=== PATIENT | male | born 1955 | race Caucasian/White ===

== ENCOUNTER 2016-12-01 13:36 | Emergency (ER) | payer OTHER ==
[~2016-12-01] VITALS: Ht 170.2 cm; Wt 104.5 kg
[2016-12-01 13:43] VITALS: BP 146/76; PULSE 70; RESP 16; O2SAT 98
[2016-12-01] MEDS ORDERED: FLC50T PO (13:46)
[2016-12-01] MEDS ORDERED: ESCI20TA PO (13:46)
--- NOTE | 2016-12-01 14:03 | ED.REPORT ---
HPI-General Illness Date of Service Dec 01, 2016 ED Provider: Dr. Baptiste Pt is a 61 y/o male anticoagulated on (possibly Eliquis), w/ a hx of a-fib s/p ablation, NIDDM, presenting to the ED c/o intermittent irregular heart palpitations onset 2 hours ago. He c/o associated lightheadedness, chest discomfort which is mostly pleuritic and directly associated with the irregular heart beats. Pt denies SOB, fever, chills. He recently had a nuclear stress test which was normal and an echocardiogram which was normal with an EF of 60%. He was placed on a Holter monitor recently at which time it was discovered that he had been experiencing intermittent episodes of a-fib and was placed on a " new anticoagulant (possibly Eliquis)" and Flecainide. Nursing Notes Stated Complaint: ABNORMAL HEART RHYTHM,LIGHT HEADED Chief Complaint: Dysrhythmia/Cardiac Nursing Notes Reviewed: Yes Allergies: Coded Allergies: Beta-Blockers (Beta-Adrenergic Bloc (Verified Allergy, Severe, fatigue, ocular migraines, 12/01/16) morphine (Verified Allergy, Intermediate, itchy , rash, 12/01/16) NSAIDS (Non-Steroidal Anti-Inflamma (Verified Adverse Reaction, Severe, gastric ulcers, 12/01/16) Scheduled Ascorbic Acid (Vitamin C) 1,000 Mg Tab.chew 1,000 MG PO DAILY Diltiazem ER (Diltiazem ER) 120 Mg Cap.er.24h 120 MG PO DAILY Escitalopram Oxalate (Lexapro) 20 Mg Tablet 20 MG PO HS Fexofenadine (Larisa Allergy) 180 Mg Tablet 180 MG PO DAILY Finasteride (Finasteride) 5 Mg Tablet 5 MG PO DAILY Flecainide Acetate (Flecainide Acetate) 50 Mg Tablet 50 MG PO BID Gabapentin (Neurontin) 300 Mg Capsule 300 MG PO DAILY Gabapentin (Neurontin) 600 Mg Tablet 600 MG PO DAILY Glipizide (Glipizide) 5 Mg Tablet 2.5 MG PO BID Metformin ER (Metformin ER) 1,000 Mg Tablet 1,000 MG PO BID Tamsulosin (Flomax) 0.4 Mg Capsule 0.4 MG PO DAILY Zinc Gluconate (Zinc) 50 Mg Tablet 50 MG PO DIRECTED Miscellaneous Medications Diazepam (Diazepam) 5 Mg Tablet Fluticasone Propionate (Flonase Allergy Relief) 50 Mcg/Actuation [place].susp 9.9 ML NS Krill Oil (Krill Oil) 500 Mg Capsule 500 MG PO Losartan Potassium (Losartan Potassium) 50 Mg Tablet 50 MG PO General Time Seen by MD: 14:02 Chief Complaint Other (Irregular palpitations) Hx Obtained From: Patient Arrived By: Walk-in Sudden in Onset?: No Onset Occurred: 1 - 4 hours ago Symptom Duration: Intermittent Severity: Current: No pain currently Severity: Maximum: No pain Past Medical History Past Medical History Notes: 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 Past Medical History Hx a-fib s/p ablation NIDDM Past Surgical History Ablation Smoking History Former Smoker, Never Smoker Social History Alcohol Use: In recovery Drug Use: In recovery Ambulatory Status Independent Review of Systems Full Review of Systems Constitutional: Denies: Chills, Fever Respiratory: Reports: Pleuritic pain, Denies: Non-productive cough, Shortness of breath Cardiovascular: Reports: Chest pain, Palpitations GI: Denies: Abdominal pain, Nausea, Vomiting Neurologic: Reports: Lightheaded, Denies: Headache Complete sys rev & neg: except as marked. Physical Exam Vital Signs Vital Signs Date Time Temp Pulse Resp B/P Pulse Ox O2 Delivery O2 Flow Rate FiO2 12/01/16 15:42 36.8 79 13 146/67 96 Room Air 12/01/16 13:43 36.1 70 16 146/76 98 Room Air Initial VS: Reviewed, Vital signs normal Head / Eyes: Atraumatic, Normocephalic, PERRL ENT: Mucous membranes moist, Conjunctiva normal, No scleral icterus Neck: Supple, Full range of motion Respiratory: Breath sounds normal, Clear to auscultation, No respiratory distress Abdomen / GI: Soft, Non-tender Extremities: Vascular intact, Neuro intact, No swelling, No tenderness Skin: Warm, Dry, No cyanosis Neurologic: Alert, Oriented, Nonfocal Psychiatric: Mood/affect normal, Behavior normal, Normal thought content Cardiovascular: Heart rate NL, Heart sounds NL, No gallop, No murmurs, No rubs , Cap refill not delayed, Peripheral circulation NL Heart Rate / Rhythm: Positive: Irregular rhythm Interpretation & Diagnostics Lab Results Interpretation Result Diagram: 12/01/16 1408 12/01/16 1408 Test 12/01/16 14:08 12/01/16 14:54 White Blood Count 7.9th/mm3 (3.8-10.1) Red Blood Count 4.84mil/mm3 (4.40-5.80) Hemoglobin 15.3g/dL (13.8-17.2) Hematocrit 42.7% (41.0-50.0) Mean Corpuscular Volume 88.2fL (81-100) Mean Corpuscular Hemoglobin 31.6pg (27.0-35.0) Mean Corpuscular Hemoglobin Concent 35.8% (32.0-37.0) Red Cell Distribution Width 13.6% (12.3-15.4) Platelet Count 187bil/L (150-400) Neutrophils (%) (Auto) 60.5% (40-74) Lymphocytes (%) (Auto) 22.7% (14-46) Monocytes (%) (Auto) 10.1% (4-12) Eosinophils (%) (Auto) 5.7% (0-5) Basophils (%) (Auto) 0.5% (0-3) Sodium Level 137mEq/L (134-144) Potassium Level 3.7mEq/L (3.5-5.2) Chloride Level 96mEq/L (97-108) Carbon Dioxide Level 25mmol/L (18-29) Blood Urea Nitrogen 10mg/dL (8-27) Creatinine 0.88mg/dL (0.76-1.27) Estimat Glomerular Filtration Rate 94mL/min (>59) Glucose Level 172mg/dL (60-99) Calcium Level 9.4mg/dL (8.5-10.1) Magnesium Level 2.1mg/dL (1.6-2.6) Total Bilirubin 0.9mg/dL (0.0-1.2) Aspartate Amino Transf (AST/SGOT) 28U/L (0-50) Alanine Aminotransferase (ALT/SGPT) 45U/L (0-44) Alkaline Phosphatase 70U/L (25-160) Troponin T < 0.010ug/L (0.0-0.011) Total Protein 7.7g/dL (6.4-8.4) Albumin 4.6g/dL (3.4-5.0) Hold [place] Top Tube Received (Received) Hold Urine Received (Received) ECG Interpretation ECG Interpretation: Sinus rhythm rate 70 Frequent APCs Time: 14:11 Interpreted by: ED physician Normal ECG Interpretation: No acute ischemic changes X-Ray Chest Interpretation View: Portable, 1 view Interpretation / Wet Read by: Wet read ED physician NL X-Ray Chest Findings: No infiltrate, No acute disease Re-Eval/Medical Decision Med Decision/Clinical Course No obvious life threatening pathology, based on telemetry monitoring and 12-lead EKG, QT interval normal. The patient is experiencing premature atrial contractions which after further discussion with patient seems to be the underlying etiology of his symptoms. Laboratory studies unremarkable. He was monitored for. Time in the ER and is feeling better. He will be discharged. Strict return and follow-up precautions given. Time of Eval: 15:29 Re-Evaluation/Progress Note: Pt rechecked. Informed pt of plan for treatment. Pt understands and agrees with plan for treatment. F/U and RTER warnings given. All questions addressed. Counseled Regarding: Diagnosis, Lab results, Need for follow-up, When/why to return to ED Discharge & Departure Primary Impression: Atrial premature complexes Disposition: Home Discharge Condition All VS Reviewed: Yes Condition: Stable Patient Instructions: Angina (ED) Additional Instructions: Overall, your workup is reassuring. It does not appear to be having a heart attack, your QT interval was normal, and the symptoms you are feeling represent premature atrial contractions based on your EKG. 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 Scribe Attestation Portions of this note were transcribed by Kyle May. I, Dr. Baptiste personally performed the history, physical exam and medical decision-making; I reviewed and confirmed the accuracy of the information in the transcribed note. Signed by Ryan Garcia, 12/01/16 - 1500 Gumaro Baptiste DO Dec 01, 2016 14:03 KYLE MAY Dec 01, 2016 14:12
[2016-12-01 14:18] LABS: BASOPHILS % (AUTO) 0.5 % (0-3); EOSINOPHILS % (AUTO) 5.7 % (0-5); MONOCYTES % (AUTO) 10.1 % (4-12); Mean Corpuscular Hemoglobin 31.6 pg (27.0-35.0); Mean Corpuscular Volume 88.2 fL (81-100); NEUTROPHILS % (AUTO) 60.5 % (40-74); Platelet Count 187 bil/L (150-400)
[2016-12-01 14:42] LABS: TROPONIN T < 0.010 ug/L (0.0-0.011)
[2016-12-01] MEDS ORDERED: LOSA50TA37 PO (14:51)
[2016-12-01] MEDS ORDERED: ASCO100089 PO (14:51)
[2016-12-01] MEDS ORDERED: FEXO180T85 PO (14:51)
[2016-12-01] MEDS ORDERED: METF-496 PO (14:51)
[2016-12-01] MEDS ORDERED: TAMS0.4C98 PO (14:51)
[2016-12-01] MEDS ORDERED: KRIL500C PO (14:51)
[2016-12-01] MEDS ORDERED: DIAZ5TAB3 (14:51)
[2016-12-01] MEDS ORDERED: GABA600T PO (14:51)
[2016-12-01] MEDS ORDERED: GLPZ5T PO (14:51)
[2016-12-01] MEDS ORDERED: DILT-17 PO (14:51)
[2016-12-01] MEDS ORDERED: ZINC50TA4 PO (14:51)
[2016-12-01] MEDS ORDERED: FINA5TAB9 PO (14:51)
[2016-12-01] MEDS ORDERED: FLUT9.9S NS (14:51)
[2016-12-01] MEDS ORDERED: GABA300C PO (14:51)
[2016-12-01 14:52] LABS: Magnesium 2.1 mg/dL (1.6-2.6)
--- NOTE | 2016-12-01 15:32 | DRSVH ---
PROCEDURE: X-RAY CHEST ONE VIEW, PORTABLE ([id number]) INDICATIONS: arrythmia TECHNIQUE: One view of the chest was acquired. COMPARISON: [facility], , CHEST 2 VIEW, 09/13/2011, 14:05. FINDINGS: Surgical changes and devices: None. Lungs and pleura: No pleural effusions or pneumothorax. Lungs are clear. Mediastinum: Mediastinal contours appear normal. Heart size is normal. Bones and chest wall: No suspicious bony lesions. Overlying soft tissues appear unremarkable. IMPRESSION: No acute cardiopulmonary disease or Dictated by: Yousuf Baez M.D. on 12/01/2016 at 15:30 Approved by: Yousuf Baez M.D. on 12/01/2016 at 15:30
[2016-12-01 15:42] VITALS: BP 146/67; PULSE 79; RESP 13; O2SAT 96
== END 2016-12-01 15:43 | disposition home or self-care (01) ==
LOC: SED 13:36
DX: I49.1 Atrial premature depolarization (principal); I48.91 Unspecified atrial fibrillation; Z79.84 Long term (current) use of oral hypoglycemic drugs; Z87.891 Personal history of nicotine dependence; Z88.5 Allergy status to narcotic agent; Z88.8 Allergy status to other drugs, medicaments and biological substances